=== PATIENT | female | born 1990 | race Caucasian/White ===

== ENCOUNTER 2018-06-19 12:16 | Emergency (ER) | payer SELFPAY ==
[~2018-06-19] VITALS: Ht 160 cm; Wt 61.2 kg
[2018-06-19 12:24] VITALS: BP 118/70; Ht 160 cm; Wt 61.2 kg
== END 2018-06-19 14:03 | disposition home or self-care (01) ==
LOC: ED 12:16
DX: S91.332A Puncture wound without foreign body, left foot, initial encounter (principal); X58.XXXA Exposure to other specified factors, initial encounter; Y93.89 Activity, other specified; Y92.89 Other specified places as the place of occurrence of the external cause; Y99.8 Other external cause status
CPT/HCPCS: Q0092